=== PATIENT | female | born 1965 | race Caucasian/White ===

== ENCOUNTER 2016-12-25 11:21 | Emergency (ER) | payer OTHER, MEDICAID ==
[2015-10-12 14:08] VITALS: BMI 39.8
[~2016-12-25 11:21] MED LIST: ASPIRIN325 MG PO; GLUCOPHAGE500 MG PO; LIPITOR20 MG PO; NEURONTIN 300300 MG PO; PRINIVIL20 MG PO
== END 2016-12-25 16:14 | disposition home or self-care (01) ==
LOC: D.ER 11:21
DX: S83.92XA Sprain of unspecified site of left knee, initial encounter (principal); W19.XXXA Unspecified fall, initial encounter; Y93.89 Activity, other specified; Y92.89 Other specified places as the place of occurrence of the external cause; I10 Essential (primary) hypertension; Z86.73 Personal history of transient ischemic attack (TIA), and cerebral infarction without residual deficits; E11.9 Type 2 diabetes mellitus without complications; E78.5 Hyperlipidemia, unspecified